=== PATIENT | male | born 1970 | race Caucasian/White ===

== ENCOUNTER 2018-02-18 20:53 | Emergency (ER) | payer BC ==
[2018-02-18] MEDS ORDERED: GLUCAGON 1 MG/VIAL ONE (21:34)
[2018-02-18] MEDS ORDERED: NITROGLYCERIN 0.4 MG/TAB SL ONE (21:34)
[2018-02-18] MEDS ORDERED: NA CHLORIDE 0.9% 1,000 ML ONE (21:34)
[2018-02-18] MEDS ORDERED: FAMOTIDINE 20 MG/2 ML VIAL IV ONE (21:47)
[2018-02-18] MEDS ORDERED: ONDANSETRON 4 MG/2 ML VIAL ONE (22:29)
--- NOTE | 2018-02-18 22:35 | EDPHYS ---
Physician Documentation [facility] Name: Last Grace Age: 47 yrs Sex: Male : 1970 Arrival Date: 02/18/2018 Time: 20:55 Bed 4 Private MD: ED Physician Melquiades Guevara HPI: 02/18 21:16 This 47 yrs old Male presents to ER via Ambulatory with complaints of wa Difficulty Swallowing, Foreign Body In Throat. 21:16 The patient presents with a foreign body sensation in the throat, swallowed a piece of wa meat which is stuck in throat. has not been able to swallow since. all liquids come back out. h/o reflux. takes PPIs. has not experienced this in the past. father with h/o esophageal CA at at 45. Onset: The symptoms/episode began/occurred 5 hour(s) ago. Severity of symptoms: At their worst the symptoms were moderate, in the emergency department the symptoms are unchanged. Modifying factors: The symptoms are alleviated by nothing, the symptoms are aggravated by fluids, swallowing. Associated signs and symptoms: The patient has no apparent associated signs or symptoms. The patient has not experienced similar symptoms in the past. The patient has not recently seen a physician. Historical: - Allergies: 21:02 No Known Allergies; lp1 - Home Meds: 21:02 None [Active]; lp1 - PMHx: 21:02 acid reflux; lp1 - PSHx: 21:02 None; lp1 - Immunization history:: Adult Immunizations up to date. - Social history:: Smoking status: Patient/guardian denies using tobacco. - Family history:: Father has/had esophageal CA at age 45. - Hospitalizations: : No recent hospitalization is reported. ROS: 21:18 Constitutional: Negative for fever, chills, and weight loss, Eyes: Negative for injury, wa pain, redness, and discharge, Neck: Negative for injury, pain, and swelling, Cardiovascular: Negative for chest pain, palpitations, and edema, Respiratory: Negative for shortness of breath, cough, wheezing, and pleuritic chest pain, Back: Negative for injury and pain, : Negative for injury, bleeding, discharge, and swelling, MS/Extremity: Negative for injury and deformity, Skin: Negative for injury, rash, and discoloration, Neuro: Negative for headache, weakness, numbness, tingling, and seizure. 21:18 ENT: Positive for difficulty swallowing, Negative for difficulty handling secretions. 21:18 Abdomen/GI: Positive for dysphagia, inability getting fluids down. 21:18 All other systems are negative. Exam: 21:20 Constitutional: This is a well developed, well nourished patient who is awake, alert, wa and in no acute distress. Head/Face: Normocephalic, atraumatic. Eyes: Pupils equal round and reactive to light, extra-ocular motions intact. Lids and lashes normal. Conjunctiva and sclera are non-icteric and not injected. Cornea within normal limits. Periorbital areas with no swelling, redness, or edema. Neck: Trachea midline, no thyromegaly or masses palpated, and no cervical lymphadenopathy. Supple, full range of motion without nuchal rigidity, or vertebral point tenderness. No Meningismus. Cardiovascular: Regular rate and rhythm with a normal S1 and S2. No gallops, murmurs, or rubs. Normal PMI, no JVD. No pulse deficits. Respiratory: Lungs have equal breath sounds bilaterally, clear to auscultation and percussion. No rales, rhonchi or wheezes noted. No increased work of breathing, no retractions or nasal flaring. Abdomen/GI: Soft, non-tender, with normal bowel sounds. No distension or tympany. No guarding or rebound. No evidence of tenderness throughout. Back: No spinal tenderness. No costovertebral tenderness. Full range of motion. Skin: Warm, dry with normal turgor. Normal color with no rashes, no lesions, and no evidence of cellulitis. MS/ Extremity: Pulses equal, no cyanosis. Neurovascular intact. Full, normal range of motion. Neuro: Awake and alert, GCS 15, oriented to person, place, time, and situation. Cranial nerves II-XII grossly intact. Motor strength 5/5 in all extremities. Sensory grossly intact. Cerebellar exam normal. Normal gait. 21:20 ENT: Posterior pharynx: is normal, airway is patent. Vital Signs: 21:02 BP 159 / 110; Pulse 86; Resp 18; Temp 98.0(O); Pulse Ox 100% on R/A; Weight 104.33 kg; lp1 Height 5 ft. 8 in. (172.72 cm); 21:38 BP 166 / 82; Pulse 91; Resp 18; Pulse Ox 98% on R/A; tl2 22:14 BP 126 / 76; Pulse 69; Resp 14; Pulse Ox 97% on R/A; tl2 23:22 BP 123 / 81; Pulse 85; Resp 14; Pulse Ox 99% on R/A; tl2 21:02 Body Mass Index 34.97 (104.33 kg, 172.72 cm) lp1 MDM: 21:03 Patient medically screened. wa 21:20 Differential diagnosis: esophageal FB. unable to get fluids down. will attempt med wa therapy. if unsuccessful, will need emergent EGD. 22:05 Data reviewed: vital signs, nurses notes. Special discussion: 10 pm: trial of glucagon wa and nitro did not alleviate symptoms. needs emergent EGD. no GI aerotriangulation specialist. will attempt transfer. 22:11 Special discussion: 2210 hrs: spoke with GI fellow Dr. Grace at [facility]. accepted wa to see pt. will effect transfer. 22:32 Medication response: no improvement. Response to treatment: There is no appreciated wa change of the patient's symptoms at this time. 02/18 21:12 Order name: Cardiac monitoring; Complete Time: 21:23 wa Administered Medications: 21:24 Drug: NS 0.9% 1000 ml Route: IV; Rate: 1 bolus; Site: right antecubital; tl2 21:24 Drug: Nitroglycerin 0.4 mg Route: Sublingual; tl2 22:42 Follow up: Response: No adverse reaction tl2 21:24 Drug: Glucagon 1 mg Route: IVP; Site: right antecubital; tl2 22:43 Follow up: Response: No adverse reaction; No adverse reaction, slight relief of symptomstl2 21:29 Drug: Pepcid 20 mg Route: IVP; Site: right antecubital; tl2 22:44 Follow up: Response: No adverse reaction tl2 22:13 Drug: Zofran 4 mg Route: IVP; Site: right antecubital; tl2 22:44 Follow up: Response: No adverse reaction; Nausea is decreased tl2 Disposition: 02/18/18 22:34 Transfer ordered to [facility]. Diagnosis is Esophageal foreign body causing acute obstruction. - Reason for transfer: Higher level of care. - Accepting physician is Dr. Dunaway at [facility].. - Condition is Stable. - Problem is new. - Symptoms are unchanged. Signatures: Lydia Davison RN RN lp1 Shannon Amato RN RN tl2 Melquiades Guevara MD MD wa
--- NOTE | 2018-02-18 22:35 | ER ---
Nurse's Notes [facility] Name: Last Grace Age: 47 yrs Sex: Male : 1970 Arrival Date: 02/18/2018 Time: 20:55 Bed 4 Private MD: Diagnosis: Esophageal foreign body causing acute obstruction Presentation: 02/18 21:01 Presenting complaint: Patient states: Choked on a piece of rib meat about 5 hours ago, lp1 has not been able to swallow, vomiting up anything he tries to eat or drink; Feels like rib meat is stuck in throat. Transition of care: patient was not received from another setting of care. Onset of symptoms was February 18, 2018 at 16:00. Care prior to arrival: None. 21:01 Method Of Arrival: Ambulatory lp1 21:01 Acuity: ADRIEN 2 lp1 Historical: - Allergies: 21:02 No Known Allergies; lp1 - Home Meds: 21:02 None [Active]; lp1 - PMHx: 21:02 acid reflux; lp1 - PSHx: 21:02 None; lp1 - Immunization history:: Adult Immunizations up to date. - Social history:: Smoking status: Patient/guardian denies using tobacco. - Family history:: Father has/had esophageal CA at age 45. - Hospitalizations: : No recent hospitalization is reported. Screenin:01 Abuse screen: Denies threats or abuse. Nutritional screening: No deficits noted. tl2 Tuberculosis screening: No symptoms or risk factors identified. Fall Risk None identified. Assessment: 21:01 General: Appears in no apparent distress. uncomfortable, Behavior is cooperative, tl2 appropriate for age, anxious. Pain: Complains of pain in throat. Neuro: Level of Consciousness is awake, alert, obeys commands, Oriented to person, place, time, situation. Cardiovascular: Denies chest pain. Respiratory: Airway is patent Respiratory effort is even, unlabored, Respiratory pattern is regular, symmetrical. GI: No signs and/or symptoms were reported involving the gastrointestinal system. : No signs and/or symptoms were reported regarding the genitourinary system. EENT: Reports difficulty swallowing states there may be rib meat stuck in his throat, Denies difficulty breathing. Derm: Skin is pink, warm \T\ dry. 21:38 Reassessment: Pt unable to swallow water at this time. Will reassess in an hour. tl2 22:14 Reassessment: Pt was able to swallow small sip of water, took another sip and it came tl2 back up. notified, stated he was planning on transferring pt. Will continue to monitor to see if symptoms resolve. 23:22 Reassessment: Patient appears in no apparent distress at this time. Patient and/or tl2 family updated on plan of care and expected duration. Pain level reassessed. Patient is alert, oriented x 3, equal unlabored respirations, skin warm/dry/pink. Pt verbalized understanding of need for transfer. Vital Signs: 21:02 BP 159 / 110; Pulse 86; Resp 18; Temp 98.0(O); Pulse Ox 100% on R/A; Weight 104.33 kg; lp1 Height 5 ft. 8 in. (172.72 cm); 21:38 BP 166 / 82; Pulse 91; Resp 18; Pulse Ox 98% on R/A; tl2 22:14 BP 126 / 76; Pulse 69; Resp 14; Pulse Ox 97% on R/A; tl2 23:22 BP 123 / 81; Pulse 85; Resp 14; Pulse Ox 99% on R/A; tl2 21:02 Body Mass Index 34.97 (104.33 kg, 172.72 cm) lp1 ED Course: 20:55 Patient arrived in ED. do 21:00 Shannon Amato, JEFE is Primary Nurse. tl2 21:01 Patient has correct armband on for positive identification. Bed in low position. Call tl2 light in reach. Side rails up X 1. Adult w/ patient. 21:02 Triage completed. lp1 21:02 Inserted saline lock: 20 gauge in right antecubital area, using aseptic technique. mt 21:02 Arm band placed on left wrist. lp1 21:03 Melquiades Guevara MD is Attending Physician. wa 23:22 No provider procedures requiring assistance completed. Patient transferred, IV remains tl2 in place. Administered Medications: 21:24 Drug: NS 0.9% 1000 ml Route: IV; Rate: 1 bolus; Site: right antecubital; tl2 21:24 Drug: Nitroglycerin 0.4 mg Route: Sublingual; tl2 22:42 Follow up: Response: No adverse reaction tl2 21:24 Drug: Glucagon 1 mg Route: IVP; Site: right antecubital; tl2 22:43 Follow up: Response: No adverse reaction; No adverse reaction, slight relief of symptomstl2 21:29 Drug: Pepcid 20 mg Route: IVP; Site: right antecubital; tl2 22:44 Follow up: Response: No adverse reaction tl2 22:13 Drug: Zofran 4 mg Route: IVP; Site: right antecubital; tl2 22:44 Follow up: Response: No adverse reaction; Nausea is decreased tl2 Outcome: 22:34 ER care complete, transfer ordered by MD. monge 23:22 Transferred by ground EMS to [facility], Transfer form completed. tl2 23:22 Condition: stable 23:22 Discharge instructions given to patient, family, Instructed on the need for transfer. 23:27 Patient left the ED. tl2 Signatures: Lydia Davison RN RN lp1 Cristal Hinojosa Taylor, RN RN tl2 Marissa Bryant mt, William, MD MD wa
== END 2018-02-18 23:27 | disposition short-term general hospital (02) ==
LOC: ER 20:53
DX: T18.128A Food in esophagus causing other injury, initial encounter (principal); X58.XXXA Exposure to other specified factors, initial encounter; Y93.9 Activity, unspecified
CPT/HCPCS: 96374; 96375; 99285; J1610; J2405; J7030

== ENCOUNTER 2022-02-22 08:37 | Day surgery (SDC) | payer BC ==
[2022-02-16 10:40] LABS: Absolute Lymphocytes (CBC) 1.7 K/uL (0.7-4.9); Hematocrit 44.4 % (39.6-49.0); Lymphocytes % 23.9 % (15.3-44.8); MPV 8.3 fL (7.6-11.3); RBC Red Blood Cell Count 5.21 M/uL (4.33-5.43)
--- NOTE | 2022-02-16 11:28 | RAD REPORT ---
EXAM DESCRIPTION: RAD - Chest Pa And Lat (2 Views) - 02/16/2022 10:46 am CLINICAL HISTORY: pre procedure screening, pending hernia repair COMPARISON: None TECHNIQUE: Frontal and lateral views of the chest were obtained. FINDINGS: The lungs are normally aerated with no focal consolidations seen. No failure or volume ove rload findings identifiable. In the right upper lobe at the aortic arch level there is a 5-6 millimet er smooth rounded nodular density. There may be a smaller suprahilar nodular focus 2-3 mm in size. Th e suprahilar finding is potentially a vessel seen on end. Small granuloma or other benign etiology is most likely. If no old chest film is available and the patient has any risk factors, follow-up chest film and 6 months could be performed to monitor for stability. Heart size is normal and central vasculature is within normal limits. No pleural effusion or pneu mothorax seen. No acute bony finding noted. No aortic abnormality. IMPRESSION: No acute cardiopulmonary process. Small 5-6 mm right upper lobe nodule is probably a small granuloma. Long-term significance is doubtfu l. A follow-up chest film in 6 months could be performed to monitor for stability.
--- NOTE | 2022-02-16 12:57 | EKG ---
Test Date: 2022-02-16 Test Time: 09:50:52 Linotype Machinist: GREYSON MEASUREMENT RESULTS: Intervals: Rate: 53 PA: 150 QRSD: 88 QT: 436 QTc: 409 [place]: P: 46 PA: 150 QRS: 53 T: 47 INTERPRETIVE STATEMENTS: Sinus bradycardia Otherwise normal ECG No previous ECG available for comparison Electronically Signed On 02-16-22 12:56:14 CDT by Feliciano Escobedo
[2022-02-22] MEDS ORDERED: Ringers Lactate 1,000 ML IV ONE (09:10)
[2022-02-22] MEDS ORDERED: CEFAZOLIN SODIUM 1 GM/VIAL ONE (09:10)
[2022-02-22] MEDS ORDERED: NA CHLORIDE 0.9% 50 ML ONE (09:10)
[2022-02-22] MEDS ORDERED: FENTANYL CITR 100 MCG/2 ML ONE (10:22)
[2022-02-22] MEDS ORDERED: LIDOCAINE 1% MPF 5 ML VIAL ONE (10:22)
[2022-02-22] MEDS ORDERED: propofoL 200 MG/20 ML VIAL IV ONE (10:22)
[2022-02-22] MEDS ORDERED: MIDAZOLAM HCL 2 MG/2 ML INJ ONE (10:22)
[2022-02-22] MEDS ORDERED: ROCURONIUM 50 MG/5 ML VIAL IV ONE (10:22)
[2022-02-22] MEDS ORDERED: KETOROLAC 30 MG/ML INJ ONE (10:54)
[2022-02-22] MEDS ORDERED: dexAMETHasone 10 MG/ML VIAL ONE (10:54)
[2022-02-22] MEDS ORDERED: NEOSTIGMINE 1 MG/ML -5 ML ONE (10:56)
[2022-02-22] MEDS ORDERED: ONDANSETRON 4 MG/2 ML VIAL ONE (10:56)
[2022-02-22] MEDS ORDERED: GLYCOPYRROLATE 0.2 MG/ML SYR ONE (10:56)
--- NOTE | 2022-02-22 11:21 | P.OP ---
Retail Office Associate: Vernon GONZALES Preoperative diagnosis: Umbilical hernia Postoperative diagnosis: Same Primary procedure: Laparoscopic repair of umbilical hernia Anesthesia: General Estimated blood loss: Minimal Specimen: Hernia sac Findings: As above Operative Technique: Patient brought to the OR and placed in the supine position. General anesthesia begun. Patient prepped draped in the usual sterile fashion. Marcaine 0.5% infiltrated locally. 15 blade used to make a 1 cm left upper quadrant incision. Subcutaneous tissue divided and fascia identified and divided. #1 Vicryl stay suture placed. Peritoneal cavity entered with sharp and blunt dissection. 12 mm trocar placed into the peritoneal cavity under direct vision. Pneumoperitoneum established. Laparoscopy revealed approximately a 3 x 3cm defect at the umbilicus. A 5 Goode trocar placed in the left lower quadrant. Then excess skin was excised, the total length of the incision was approximately 3 cm over the umbilicus. Hernia sac was excised from the fascial edges. Then #1 PDS was used to close the fascial defect. Then Bard balloon system hernia mesh oval in shape was placed through the left upper quadrant into the peritoneal cavity. The mesh was deployed in the standard fashion. Sorbitex was used to secure the mesh to the peritoneal surface. Complete coverage of the hernia defect was accomplished. No evidence of bleeding or bowel injury was appreciated. All trochars removed under direct vision. Stay sutures tied to each other reapproximate the fascial defect. Subcutaneous wounds irrigated bleeding controlled cautery. 3-0 chromic and 4-0 Monocryl was used to close the wounds. Sterile dressing applied and patient awakened. Patient taken to recovery in good general condition. CC: Dr. Travis's office Complications: None Transferred to: Recovery Room Condition: Good
[2022-02-22] MEDS ORDERED: HYDROCODONE/APAP 7.5/325 MG TAB PO PRN (11:23)
[2022-02-22] MEDS: HYDROMORPHONE HCL 2 MG/ML inj ONE ×3 (11:52→12:03)
[2022-02-22] MEDS ORDERED: MEPERIDINE HCL 25 MG/ML SYR ONE (12:10)
[2022-02-22] MEDS ORDERED: MEPERIDINE HCL 50 MG/ML ONE (12:10)
[2022-02-22] MEDS ORDERED: PROMETHAZINE INJ 25 MG/ML AMP ONE (12:10)
[2022-02-22 13:07] VITALS: BP 106/81; TEMP 96.5; O2SAT 98
== END 2022-02-22 13:20 | disposition home or self-care (01) ==
LOC: OR 08:37
PROVIDERS: ATTEND Surgery
PROC: 0WUF4JZ Supplement Abdominal Wall with Synthetic Substitute, Percutaneous Endoscopic Approach (ICD-10-PCS; principal; 2022-02-22 10:30)
DX: K42.9 Umbilical hernia without obstruction or gangrene (principal); Z20.822 Contact with and (suspected) exposure to COVID-19
CPT/HCPCS: 93005; 85025; 80048; 36415; 88302; 71046; 49652; U0003; J2704; J2550; J2250; J1170; J3010; J1100; J2175 ×2; J2710; J7120; J2405; J0690